=== PATIENT | male | born 1980 | race Caucasian/White ===

== ENCOUNTER 2023-12-13 12:23 | Observation (INO) ==
[2023-12-13] MEDS ORDERED: ONDANSETRON INJ 2 MG/ML 2 ML VIAL IV PRN (14:26)
--- NOTE | 2023-12-13 14:28 | History & Physical Report ---
Date of Service December 13, 2023 Assessment & Plan (1) Acute acalculous cholecystitis: (2) Hypertension: (3) Obesity: Plan 43 year old male transfer from for acute cholecystitis Acute cholecystitis - presented with RUQ pain and vomiting at outside hospital. WBC 10, Cr 1.29, egfr 70, lipase 34, troponin 6, Electrolytes normal, LFT normal * AST 3, ALT 21, ALP 81) - RUQ US with wall thickening of BG with no evidence of cholelithiasis, normal common duct size. Findings may represent early acalculous cholecystitis - CT A/P with diffuse mucosal enhancement of BG with mild diffuse thickening and pericholecystic minimal edema, signifying acute cholecystitis. - Given iv rocephin and toradol at OSH with improvement in symptoms, currently 11/14 - Will get EKG, keep npo, continue ivf, iv toradol prn, iv zofran prn, empiric unasyn, general surgery consult made aware. HTN- he does not know the name of his antihypertensive ?amlod 2.5 per epic. Will continue based on BP readings. Monitor Nicotine abuse- prior smoker, now on gums. Obesity- Weight 230 lb. Was on metformin before which did not help. Has appt with weight management for Thu. DVT ppx- Holding chemoppx for anticipated surgery. Ambulation. SCDs Full code Dispo- Admit to inpatient medsurg. Time spent- approx 80 mins History of Present Illness Chief Complaint: abd pain, vomiting Primary Care Provider: Annmarie Mckenna MD 43 year old male with h/o HTN, prior tobacco abuse, prior substance abuse, obesity who presented as direct admit from [facility] for acute cholecystitis. Spoke to Dr Bazan from prior to transfer. I have seen and examined the patient at bedside and reviewed the transfer documents. He had an episode of RUQ pain 2 weeks back and again had recurrence last night. States after dinner last night, he had abd pain. He then went to bed, woke up at 3 am with severe RUQ pain and had few episodes of vomiting. He presented to where RUQ US and CT A/P showed acute acalculous cholecystitis. He was managed with iv toradol, iv rocephin and his pain improved. He was transferred here for surgical evaluation as they did not have surgical service there. During my encounter, he is lying comfortably in bed. States pain in 11/14. N/V has subsided. No fever or chills. He quit smoking long time back and chews gums. He does not drink alcohol or do drugs. PMH- HTN, Obesity PSH- Not significant FH- Dad with DM, HTN Social history- prior smoker, now chews gums. Prior substance abuse Allergies- NKDA Allergies Allergy/AdvReac Type Severity Reaction Status Date / Time onion Allergy Severe Hives and Unverified 12/13/23 15:17 difficulty breathing Home Medications Medication Instructions Recorded Confirmed Type amlodipine 2.5 mg tablet 2.5 mg PO DAILY 12/13/23 12/13/23 History Past Med/Surg History Medical History No significant past medical history Surgical History No significant past surgical history Social History Smoking Status: Former smoker Preferred Language: Swedish marital status: Current Living Situation: Spouse and Family current occupational status: employed Feels Safe at Home: Yes Review of Systems Review of Systems: All systems reviewed & are unremarkable except as noted in Subjective Physical Exam Physical Exam: General: Lying comfortably in bed, not in acute distress, on room air HEENT: EOMI, ARLYN, MMM Chest: Clear breath sounds bilaterally, no wheezes or crackles CVS: Regular rate and rhythm, normal heart sounds, no murmur Abdomen: Soft, RUQ tenderness+, not distended, normal bowel sounds Neuro: Awake, alert, oriented, conversing well, non focal Extremities: No cyanosis, clubbing or edema Code Status & VTE Plan VTE Prophylaxis Plan VTE Prophylaxis will be ordered: Yes
--- OUTSIDE RECORDS SUMMARY | 2023-12-13 14:50 | External Medical Summary | Summary of Care ---
Author Name Unknown Organization [facility] Address [address] [place] [address] Phone [phone] Care Team Providers Care Pharmacy Technician Per Diem Name Role Phone Yunior Felix DO Primary Care Provider [phone] Reason for Visit * Reason Comments Suture Removal Patient here for sut ure removal on left shoulder. Encounter Details Date Type Department Care Team Description 06/23/2023 Nurse Only MO[facility] Surgery [facility] [address] [place] [address] Malena VELASQUEZ, Nurse [facility] [address] [place] [address] Suture Removal (Patient here for suture re... Allergies Active Allergy Reactions Severity Noted Date Comments Onion 12/03/2021 Hives per patient documented as of this encounter (statuses as of 06/23/2023) Medications Medication Sig Dispensed Refills Start Date End Date Status Tadalafil 5 MG Oral Tablet take 1 tablet by mouth once daily prior to intercourse not more than 1 dose in 24 hours 0 03/09/2023 Active amLODIPine Besylate 2.5 MG Oral Tablet (Norvasc)Indication s:HTN, goal below 130/80 take 1 tablet by mouth every morning 90 Tablet 1 05/26/2023 Active documented as of this encounter (statuses as of 06/23/2023) Active Problems Problem Noted Date History of substance use disorder 2022 HTN, goal below 130/80 06/23/2022 Follow-up exam 12/13/2020 Follow-up exam 12/13/2020 GERD (gastroesophageal reflux disease) 0 11/24/2014 NO KNOWN PROBLEMS 11/17/2014 documented as of this encounter (statuses as of 06/23/2023) Immunizations Name Administration Dates Next Due COVID-19 mRNA, LNP-s, No Pre serve, 2-Dose Series (Moderna) 07/31/2021,01/01/2021,12/04/2020 SEASONAL INFLUENZA, PF, 6 M & Above, IM , (FLULAVAL or FLUZONE) 06/23/2022,07/19/2021,06/27/2020 TDAP (age 10 and older)(Boostrix) 04/28/2019 documented as of this encounter Social History Tobacco Use Types Packs/Day Years Used Date Smoking Tobacco: Former Smokeless Tobacco: Current Chew Alcohol Use Standard Drinks/Week Comments No 0 (1 standard drink = 0.6 oz pur e alcohol) Food Insecurity Answer Date Recorded Within the past 12 months, y ou worried that your food would run out before you got money to buy more. Never true 03/09/2023 Within the past 12 months, t he food you bought just didn't last and you didn't have money to get more. Never true 03/09/2023 Sex Assigned at Date Recorded Male 06/21/2022 5:39 PM E DT Job Start Date Occupation Industry Not on file Not on file Not on file documented as of this encounter Nursing Notes * Emiliana Young LPN - 06/23/2023 3:44 PM EDT Chief Complaint Patient presents with Suture Removal Patient here for suture removal on left shoulder. Patient presents for suture removal in the area of left shoulder. Patient denies any problems or concerns at current time. No signs or symptoms of infection noted at current time. Sutures removed without difficulty. No special skin care instructions at this time. Pt verbalizes understanding. documented in this encounter Plan of Treatment Upcoming Encounters Date Type Specialty Care Team Description 08/11/2023 Office Visit Gastroenterology Yulissa Kelsey PA-C [address] [place] [address] Health Maintenance Due Date Last Done Comments Hepatitis B (1 of 3 - 3-dose series) 1980 Depression Screening 09/17/2021 09/17/2020 COVID-19 Vaccine ( - 2022- season) 2023 07/31/2021, 01/01/2021, 12/04/2020 Influenza Vaccine (FLU shot) (#1) 2023 06/23/2022, 07/19/2021, 06/27/2020 GFR 03/21/2024 03/21/2023, 09/07, 11/24/2014 Albumin/Creatinine Ratio 03/21/2026 03/21/2023 Diabetes Screening 03/21/2026 03/21/2023, 0 03/21/2023, 09/24/2021, Additional history exists Lipid Panel 03/21/2028 03/21/2023, 04/19/2022 DTaP,Tdap,and Td Vaccines (2 - Td or Tdap) 04/28/2029 04/28/2019 GARDASIL-HPV IMMUNIZATION SERIES Aged Out No longer eligible based on patient's age to complete this topic HIV Screening Discontinued Hepatitis C Screening Discontinued MENINGOCOCCAL (MENACTRA/MENVEO) Aged Out No longer eligible based on patient's age to complete this topic Pneumococcal Vaccine: Pediatrics (0 to 5 Years) and At-Risk Patients (6 to 64 Years) Aged Out No longer eligible based on patient's age to complete this topic documented as of this encounter Medical Devices Not on filedocumented as of this encounter Care Teams Pharmacy Technician Per Diem Relationship Specialty Start Date End Date Yunior Felix DO [address] [place] [address] PCP - General Family Medicine 02/03/21 documented as of this encounter
--- OUTSIDE RECORDS SUMMARY | 2023-12-13 14:50 | External Medical Summary | Summary of Care ---
Author Name Unknown Organization [facility] Address [address] [facility] [place] [address] Phone [phone] Care Team Providers Care Spouter Name Role Phone Annmarie Mckenna MD Primary Care Provider Reason for Visit * Reason Comments Weight Management Meds and diet. * Evaluate & Treat - Unlimited Visits (Within 30 days (routine)) - Pending Review Specialty Diagnoses / Procedures Referred By Contact Referred To Contact GI NUTRITION/IM / Gastroenterology Diagnoses Obesity, Class I, BMI 30.0-34.9 (see actual BMI) Annmarie Mckenna MD [address] [place] [address] Referral ID Status Reason Start Date Expiration Date Visits Requested Visits Authorized [id number] Pending Review Specialty Services Required 04/09/[phone] Encounter Details Date Type Department Care Team (Late st Contact Info) Description 08/11/2023 11:00 AM EST Office Visit Nutrition & Weight Management, [facility] [address] [place] [address] Yulissa Kelsey PA-C [address] [place] [phone] Class 1 obesity due to excess calories without serious comorbidity in adult, unspecified BMI*; Abnormal weight gain; Gastroesophageal reflux disease with esophagitis without hemorrhage; HTN, goal below 130/80 Allergies Active Allergy Reactions Criticality Noted Date Comments Onion 12/03/2021 Hives per patient documented as of this encounter (statuses as of 08/11/2023) Medications Medication Sig Dispensed Refills Start Date End Date Status Tadalafil 5 MG Oral Tablet take 1 tablet by mouth once daily prior to intercourse not more than 1 dose in 24 hours 0 03/09/2023 Active amLODIPine Besylate 2.5 MG Oral Tablet (Norvasc)Indication s:HTN, goal below 130/80 take 1 tablet by mouth every morning 90 Tablet 1 05/26/2023 Active metFORMIN HCl 500 MG Oral Tablet (Glucophage) 500mg by mouth daily x 1 week, then 500mg by mouth twice daily 60 Tablet 1 08/11/2023 Active documented as of this encounter (statuses as of 08/11/2023) Active Problems Problem Noted Date Diagnosed Date History of substance use disorder 09/25/2022 HTN, goal below 130/80 06/23/2022 Follow-up exam 12/13/2020 Follow-up exam 12/13/2020 GERD (gastroesophageal reflux disease) 5 NO KNOWN PROBLEMS 11/17/2014 documented as of this encounter (statuses as of 08/11/2023) Immunizations Name Administration Dates Next Due COVID-19 mRNA, LNP-s, No Pre serve, 2-Dose Series (Moderna) 07/31/2021,01/01/2021,12/04/2020 SEASONAL INFLUENZA, PF, 6 M & Above, IM , (FLULAVAL or FLUZONE) 07/24/2023,06/23/2022,07/19/2021, 0 20 TDAP (age 10 and older)(Boostrix) 04/28/2019 documented as of this encounter Social History Tobacco Use Types Packs/Day Years Used Date Smoking Tobacco: Former Smokeless Tobacco: Current Chew Alcohol Use Standard Drinks/Week Comments No 0 (1 standard drink = 0.6 oz pur e alcohol) PHQ-2 Answer Date Recorded PHQ Adult Total Score 1 09/17/2020 Hunger Vital Sign Answer Date Recorded Within the past 12 months, y ou worried that your food would run out before you got the money to buy more. Never true 03/09/20 23 Within the past 12 months, t he food you bought just didn't last and you didn't have money to get more. Never true 03/09/2023 Sex and Gender Information Value Date Recorded Sex Assigned at Male 06/21/2022 5:39 PM EDT Gender Identity Male 06/21/2022 5:39 PM EDT Sexual Orientation Straight 06/21/2022 5: 39 PM EDT Job Start Date Occupation Industry Not on file Not on file Not on file documented as of this encounter Last Filed Vital Signs Vital Sign Reading Time Taken Comments Blood Pressure 136/96 08/11/2023 10:58 AM EST Pulse 88 08/11/2023 10:58 AM EST Temperature - - Respiratory Rate - - Oxygen Saturation - - Inhaled Oxygen Concentration - - Weight 110.3 kg (243 lb 1.6 oz) 023 10:58 AM EST Height 184.2 cm (6' 0.5") 08/11/2023 10 :58 AM EST Body Mass Index 32.52 08/11/2023 10:58 AM EST documented in this encounter Progress Notes * Yulissa Kelsey PA-C - 08/11/2023 11:17 AM EST [facility] CONSULTATION INITIAL CONSULT Referring Physician: Annmarie Mckenna MD Nursing Notes: Bianca Ya, MARCUS 08/11/23 1103 Sign at exiting of workspace Pt verified identity by last name and date. Chief Complaint Patient presents with Weight Management Meds and diet. Waist circumference 43 inches Neck circumference 17 inches Ben Sury Tubbs Jr. is a 42 year old patient who presents to the [facility] for further recommendations. - Initial clinic visit 08/11/2023 Weight 243 lbs Height Body mass index is 32.52 kg/m. Wt Readings from Last 6 Encounters: 08/11/23 110.3 kg (243 lb 1.6 oz) 03/09/23 111.6 kg (246 lb) 09/25/22 111.2 kg (245 lb 3.2 oz) 06/23/22 109.4 kg (241 lb 3.2 oz) 12/13/21 114.8 kg (253 lb) 10/24/21 115 kg (253 lb 8 oz) HPI: Visit 08/11/23 The patient suffers from Class I obesity Patient is interested in the following treatment options for obesity: possible medication use. Previous Weight Management Interventions: The patient has tried weight loss in the past without significant fci success. Previous interventions: Self-directed. Interested in a pill his friend was on but not sure the name Current Diet: Describes typical diet history/24 hr recall Breakfast: coffee Snacks: Lunch: chicken, rice, carrots Snacks: none Dinner: chicken, egg noodles, broccoli Snacks: none Drinks: coffee, water, alexandra jagdish [employer] meals: several times a week Past Medical History Glaucoma No Hypertension: Yes, one medications CAD: No Congestive heart failure No Dyslipidemia: Yes, not on treatment Lipid Panel Results: Results for orders placed or performed in visit on 03/21/23 LIPID PANEL WITH DIRECT LDL IF TG IS HIGH Result Value Ref Range Triglycerides 107 <=174 mg/dL Cholesterol 248 (H) <200 mg/dL HDL Cholesterol 39 (L) >39 mg/dL Non-HDL Cholesterol 209 (H) <=159 mg/dL LDL Cholesterol 188 (H) <=129 mg/dL DVT/PE, clotting disorder: No Stroke: No Seizures: No Sleep Apnea: No Asthma: No COPD: No Patient denies personal or family history of medullary thyroid carcinoma. Patient denies personal or family history of multiple endocrine neoplasia syndrome type II Patient denies personal history of pancreatitis Fatty Liver: no Diabetes: No Hemoglobin A1C last 3 results: Lab Results Component Value Date/Time HEMOGLOBIN A1C - [facility] 5.6 03/21/2023 08:14 AM HEMOGLOBIN A1C - [facility] 5.6 09/24/2021 07:33 AM Insulin Resistance: No PCOS: No GERD: Yes: Requiring medications: No History of nephrolithiasis: No. Osteoarthritis: No Anxiety/Depression: Yes Patient Active Problem List Diagnosis Code NO KNOWN PROBLEMS [id number] GERD (gastroesophageal reflux disease) K21.9 Follow-up exam Z09 Follow-up exam Z09 HTN, goal below 130/80 I10 History of substance use disorder Z87.898 Past Surgical History: Procedure Laterality Date ANORECTAL EXAM ,DIAG, REQUIRING ANESTHESIA N/A 12/13/2021 ANORECTAL EXAM UNDER ANESTHESIA performed by Eileen Nieves MD at [facility] HEMORRHOIDECTOMY, INTERNAL W/ BANDING N/A 12/13/2021 HEMORRHOIDECTOMY LIGATURE SIMPLE BANDING performed by Eileen Nieves MD at [facility] REMOVE TONSILS & ADENOIDS, UNDER 12 T & A, age<12 Review of patient's allergies indicates: Allergen Reactions Onion Hives per patient Current Outpatient Medications Medication Sig Dispense Refill amLODIPine Besylate 2.5 MG Oral Tablet (Norvasc) take 1 tablet by mouth every morning 90 Tablet 1 Tadalafil 5 MG Oral Tablet take 1 tablet by mouth once daily prior to intercourse not more than 1 dose in 24 hours Flulaval Quadrivalent 0.5 ML Suspension Prefilled Syringe (influenza virus vaccine, quadrivalent) Inject into a large muscle. (Patient not taking: Reported on 08/11/2023) 0.5 mL 0 No current facility-administered medications for this visit. Family History Problem Relation Age of Onset Hypertension Father Heart attack Grandfather (Paternal) 50 No Past Hx None Heart attack Uncle (Paternal) Heart disease Aunt (Paternal) 50 CABG Social History: Alcohol: None Tobacco Use: Yes, chews less than 1 can per day Drug Use: No Marital status: Occupation: [employer] Review of Systems: Review of Systems Gastrointestinal: Negative for abdominal pain, diarrhea, nausea and vomiting. Musculoskeletal: Negative for arthralgias. Psychiatric/Behavioral: +anxiety but reports well controlled Physical Examination: BP 136/96 | Pulse 88 | Ht 1.842 m (6' 0.5") | Wt 110.3 kg (243 lb 1.6 oz) | BMI 32.52 kg/m | BSA 2.38 m Physical Exam Vitals and nursing note reviewed. Constitutional: Appearance: Normal appearance. HENT: Head: Normocephalic and atraumatic. Cardiovascular: Normal rate. Pulmonary: Effort: Pulmonary effort is normal. No respiratory distress. Neurological: Mental Status: Alert and oriented to person, place, and time. Psychiatric: Mood and Affect: Mood normal. Assessment and Recommendation: Abnormal weight gain Body mass index is 32.52 kg/m. Class I obesity. Discussed weight management options and would like to proceed with medication weight management. Barriers are consistency. Motivators are feeling better, avoiding/reducing comorbid conditions. Patient goals were discussed in detail at visit. BMR = 2,035 Calories/day Daily calorie needs based on activity level Activity Level Calorie Sedentary: little or no exercise 2,442 Exercise 1-3 times/week 2,798 Exercise 4-5 times/week 2,982 Daily exercise or intense exercise 3-4 times/week 3,155 Intense exercise 6-7 times/week 3,511 Very intense exercise daily, or physical job 3,867 1. Keep a food log. If you bite it, write it! Apps like TalentSky or Tip or Skippal Calorie goal: 9209-1700 calories per day Macronutrients: Protein 10%-35%, Carbohydrates 45%-65%, fat 20%-35% Lower carb: protein 35%, Carbohydrates 40%, fat 25% 2. Drink 48-64 ounces of non-caloric beverages per day. No fruit juices or regular soda Try crystal light, propel, zero calorie flavored water, plain water 3. Goal of 30 minutes of exercise 5 days per week (150 minutes per week--can be divided up however you would like) Aim for aerobic activity and muscle strengthening activities 4. Increase fruit and vegetable servings to 5-6 per day. 1/2 of your plate should be fruits and vegetables 5. Eat 100-200 calories within 1-2 hours of awakening, and every 4 - 6 hours while awake. Do not skip meals!! Eat 3 meals with snacks in between. Choose 100 calorie or less snacks, protein snacks (see handout) 7. Weigh yourself weekly and follow trend over time (day to day weight fluctuations can be discouraging) 8. Decrease starches like bread, pasta, cereal, potatoes and corn. Aim for of your plate Try substitutions like zoodles, lentil pasta, cauliflower mashed potatoes, whole grain foods, quinoa Limit junk/processed foods Chips, pretzels, cookies, cakes, sweets White bread/rolls/wraps/bagels, white rice 9. Increase protein to feel full longer (1/4 of your plate; see myplate handout) Aim for minimum 60 g protein per day/20 g protein per meal Ben was seen today for weight management. Diagnoses and all orders for this visit: PLAN: Goals as above Anti obesity Medication Indications: BMI >30 or BMI >27 with obesity related comorbidity & no apparent contraindications Goal is to lose ~5% wt loss in 3 mo Wegovy/Saxenda/Zepbound: he will check coverage Ozempic, Victoza, Toby, [place]: likely no coverage without type II diabetes diagnosis Wellbutrin: consider Naltrexone: consider Topamax: consider Phentermine: avoid-- HTN Xenical: consider Plenity: consider Metformin: will start Patient would like to try: metformin Class 1 obesity due to excess calories without serious comorbidity in adult, unspecified BMI Goals as above He thinks his friend was taking metformin-- can try metformin Could have been Rybelsus-- however he doesn't have DM2 and rybelsus is likely not covered Plan metFORMIN HCl 500 MG Oral Tablet (Glucophage) Abnormal weight gain Gastroesophageal reflux disease with esophagitis without hemorrhage Not taking medication HTN, goal below 130/80 BP 136/96 | Pulse 88 | Ht 1.842 m (6' 0.5") | Wt 110.3 kg (243 lb 1.6 oz) | BMI 32.52 kg/m | BSA 2.38 m Continue amlodipine Avoid phentermine Anxiety -reports more performance anxiety Phentermine could worsen anxiety Other orders - metFORMIN HCl 500 MG Oral Tablet (Glucophage); 500mg by mouth daily x 1 week, then 500mg by mouthtwice daily I spent a total of 58 minutes on the date of service in preparation, delivery, and documentation ofthe care provided to Ben Tubbs Jr. excluding any time spent in the performance of separately billed services. More than 50% of my time spent with patient providing counseling about the benefits of weight loss, about the patient's nutritional status, detailed explanations about calorie count, types of nutrients to choose, and composition of the meals. Reviewed and discussed weight, weight trends and pertinent labs and test results. Motivational interview provided in order to prepare the patient to achieve future goals. The patient agreed to try all the plan discussed and return in three months. Patient was instructed to message or call in the meantime with any further concerns or questions. Yulissa Kelsey PA-C, [facility] Nutrition and Weight Management [facility]) documented in this encounter Nursing Notes * Bianca Ya LPN - 08/11/2023 11:02 AM EST Pt verified identity by last name and date. Chief Complaint Patient presents with Weight Management Meds and diet. Waist circumference 43 inches Neck circumference 17 inches documented in this encounter Plan of Treatment Upcoming Encounters Date Type Department Care Team (Late st Contact Info) Description 12/31/2023 9:20 AM EDT Office Visit Nutrition & Weight Management, [facility] [address] [place] [address] Yulissa Kelsey PA-C [address] [place] [address] Health Maintenance Due Date Last Done Comments Hepatitis B (1 of 3 - 3-dose series) 1980 Depression Screening 09/17/2021 09/17/2020 COVID-19 Vaccine ( season) 2023 07/31/2021, 01/01/2021, 12/04/2020 GFR 03/21/2024 03/21/2023, 09/07, 11/24/2014 Albumin/Creatinine Ratio 03/21/2026 03/21/2023 Diabetes Screening 03/21/2026 03/21/2023, 0 03/21/2023, 09/24/2021, Additional history exists Lipid Panel 03/21/2028 03/21/2023, 04/19/2022 DTaP,Tdap,and Td Vaccines (2 - Td or Tdap) 04/28/2029 04/28/2019 Influenza Vaccine (FLU shot) Completed 07/24/2023, 06/23/2022, 07/19/2021, Additional history exists GARDASIL-HPV IMMUNIZATION SERIES Aged Out No longer [...] Not on filedocumented as of this encounter Visit Diagnoses Diagnosis Class 1 obesity due to excess calories without serious comorbidity in adult, unspecified BMI- Primary Abnormal weight gain Gastroesophageal reflux disease with esophagitis without hemorrhage HTN, goal below 130/80 Unspecified essential hypertension documented in this encounter Care Teams Spouter Relationship Specialty Start Date End Date Annmarie Mckenna MD [address] [place] [address] PCP - General Internal Medicine 08/04/23 documented as of this encounter
--- OUTSIDE RECORDS SUMMARY | 2023-12-13 14:50 | External Medical Summary | Summary of Care ---
Author Name Unknown Organization [facility] Address [address] [facility] [place] [address] Phone [phone] Care Team Providers Care Interactive Media Specialist Name Role Phone Saul Mckenna MD Primary Care Provider Reason for Visit * Reason Comments eRx-Medication Refill Encounter Details Date Type Department Care Team (Late st Contact Info) Description 12/10/2023 Refill Family Practice [facility] [address] [place] [address] Saul Mckenna MD [address] [place] [address] HTN, goal below 130/80 Allergies Active Allergy Reactions Criticality Noted Date Comments Onion 12/03/2021 Hives per patient documented as of this encounter (statuses as of 12/10/2023) Medications Medication Sig Dispensed Refills Start Date End Date Status Nitro-Bid 2 % Transdermal Ointment (Nitroglycerin) Place topically on the skin every 6 hours. Apply locally at hemorroid twice daily as needed. 1 g 1 09/19/2023 Active metFORMIN HCl 500 MG Oral Tablet (Glucophage) Take 1 Tablet by mouth 2 times a day with morning and evening meals. 60 Tablet 1 10/08/2023 Active amLODIPine Besylate 2.5 MG Oral Tablet (Norvasc)Indicati ons:HTN, goal below 130/80 take 1 tablet by mouth every morning 90 Tablet 3 12/10/2023 Active amLODIPine Besylate 2.5 MG Oral Tablet (Norvasc)Indicati ons:HTN, goal below 130/80 take 1 tablet by mouth every morning 90 Tablet 1 05/26/2023 4 Discontinued documented as of this encounter (statuses as of 12/10/2023) Active Problems Problem Noted Date Diagnosed Date Obesity, Class I, BMI 30.0-34.9 (see actual BMI) 09/03/2023 History of substance use disorder 09/25/2022 HTN, goal below 130/80 06/23/2022 Gastroesophageal reflux disease without esophagi tis 11/24/2014 documented as of this encounter (statuses as of 12/10/2023) Resolved Problems Problem Noted Date Diagnosed Date Resolved Date Follow-up exam 12/13/2020 09/03/2023 Follow-up exam 12/13/2020 09/03/2023 NO KNOWN PROBLEMS 11/17/2014 09/03/2023 documented as of this encounter (statuses as of 12/10/2023) Immunizations Name Administration Dates Next Due COVID-19 mRNA, LNP-s, No Pre serve, 2-Dose Series (Moderna) 07/31/2021,01/01/2021,12/04/2020 COVID-19, MRNA-LNP, 23-24, P F, 30 MCG/0.3 mL, 12 YRS AND ABOVE, IM (PFIZER-Comirnaty) 09/18/2023 Seasonal Influenza, PF, 6 M & above, IM , (FluLaval or Fluzone) 07/24/2023,06/23/2022,07/19/2021, 0 20 TDAP (age 10 and [...] on file documented as of this encounter Miscellaneous Notes * Telephone Encounter - Reg Mclean [facility] - 12/10/2023 9:02 PM EDTSigned Prescriptions: Disp Refills amLODIPine Besylate 2.5 MG Oral Tablet (No*90 Tab*3 Sig: take 1 tablet by mouth every morningAuthorizing Provider: SAUL MCKENNA User: REG MCLEAN documented in this encounter Plan of Treatment Upcoming Encounters Date Type Department Care Team (Late st Contact Info) Description 12/16/2023 10:40 AM EDT Office Visit Nutrition & Weight Management, [facility] [address] [place] [address] Yulissa Kelsey PA-C [address] [facility] [place] [address] Health Maintenance Due Date Last Done Comments Hepatitis B (1 of 3 - 19+ 3-dose series) 1998 Depression Screening 09/17/2021 09/17/2020 GFR 03/21/2024 03/21/2023, 09/07, 11/24/2014 Albumin/Creatinine Ratio 03/21/2026 03/21/2023 Diabetes Screening 03/21/2026 03/21/2023, 0 03/21/2023, 09/24/2021, Additional history exists Lipid Panel 03/21/2028 03/21/2023, 04/19/2022 DTaP,Tdap,and Td Vaccines (2 - Td or Tdap) 04/28/2029 04/28/2019 Influenza Vaccine (FLU shot) Completed 07/24/2023, 06/23/2022, 07/19/2021, Additional history exists COVID-19 Vaccine Completed 09/18/2023, , 01/01/2021, Additional history exists GARDASIL-HPV IMMUNIZATION SERIES Aged [...] as of this encounter Visit Diagnoses Diagnosis HTN, goal below 130/80 Unspecified essential hypertension documented in this encounter Care Teams Interactive Media Specialist Relationship Specialty Start Date End Date Saul Mckenna MD [address] [place] [address] PCP - General Internal Medicine 08/04/23 documented as of this encounter
--- OUTSIDE RECORDS SUMMARY | 2023-12-13 14:50 | External Medical Summary | Summary of Care ---
Author Name Unknown Organization [facility] Address [address] [facility] [place] [address] Phone [phone] Care Team Providers Care Restorative Rehab Aide Name Role Phone Isidro Yunior LOREDO Primary Care Provider [phone] Reason for Visit * Reason Comments Excision Patient here for exc ision on left shoulder. Encounter Details Date Type Department Care Team Description 06/09/2023 Office Visit [facility] [address] [place] [address] Jean-Paul Campos MD [address] [place] [address] Pyogenic granuloma*; Skin tumor Allergies Active Allergy Reactions Severity Noted Date Comments Onion 12/03/2021 Hives per patient documented as of this encounter (statuses as of 06/19/2023) Medications Medication Sig Dispensed Refills Start Date End Date Status Tadalafil 5 MG Oral Tablet take 1 tablet by mouth once daily prior to intercourse not more than 1 dose in 24 hours 0 03/09/2023 Active amLODIPine Besylate 2.5 MG Oral Tablet (Norvasc)Indicati ons:HTN, goal below 130/80 take 1 tablet by mouth every morning 90 Tablet 1 05/26/2023 Active Cephalexin 500 MG Oral Capsule (Keflex) Take 1 Capsule by mouth in the morning and 1 Capsule before bedtime. Do all this for 10 days. 20 Capsule 0 06/09/2023 06/19/2023 Active documented as of this encounter (statuses as of 06/19/2023) Active Problems Problem Noted Date History of substance use disorder 01/19/ 2023 HTN, goal below 130/80 06/23/2022 Follow-up exam 12/13/2020 Follow-up exam 12/13/2020 GERD (gastroesophageal reflux disease) 0 11/24/2014 NO KNOWN PROBLEMS 11/17/2014 documented as of this encounter (statuses as of 06/19/2023) Immunizations Name Administration Dates Next Due COVID-19 [...] on file documented as of this encounter Progress Notes * Jean-Paul Campos MD - 06/09/2023 3:58 PM EDT Patient had a biopsy done 05/22/[address] Valencia-- found to be a DF (see below). Developed a raised lesion 2-3 days after biopsy and it has been bleeding non stop. Clinically appears to have developed a pyogenic granuloma at the site of his biopsy. PROCEDURE NOTE Preoperative diagnosis: Skin, L shoulder, shave: Dermatofibroma, with lipidized features (see comment) Comment: The lesion extends to the deep inked margin of the specimen. Hematoxylin and eosin stainedsections reveal epidermal basilar induction overlying a relatively well demarkated fibrohistiocyticproliferation in the dermis with collagen trapping, dilated vessels, and lipidized multinucleate yevgeniy nt cell macrophages. Postoperative diagnosis: Pending Surgeon(s): Jean-Paul Campos MD Anesthesia: Lidocaine 0.5% with epinephrine 1:200,000 by local infiltration Procedure: excision Estimated blood loss: Less than 5cc Complications: none Description of procedure: Patient escorted to procedure room. Timeout called at 345 PM. Patient name, medical record number, date and procedure verified. Verification of positioning, equipment and availability of supplies. Site identified and marked prior to procedure. Patient and staff present and in agreement. The lesion was identified and an elliptical excision was planned on the left shoulder. . Long axis of the ellipse was oriented parallel to the relaxed skin tension lines in the area. Excision was planned to take at least 0.2 cm of normal appearing skin in all directions. The skin was locally anesthetized and prepped in the usual sterile fashion. Full-thickness excision was performed to the level of the fat. Total width of excision was 1.5 cm. The specimen was submitted in formalin for histologic examination. Meticulous hemostasis was obtained with the electrosurgical device and the defect was closed in a layered fashion with 3-0 vicryl subcutaneous and 3-0 prolene cutaneo us suture. The closure length was 4.0 cm. A sterile pressure dressing was applied. Postoperative care: The patient was instructed to cleanse the wound daily, followed by the application of sterile ointment and a nonadherent dressing. I urged the patient to call us if any problems or questions should arise postoperatively. Started on post-op antibiotics. Brian Campos MD documented in this encounter Nursing Notes * Emiliana Young LPN - 06/09/2023 4:12 PM EDT Chief Complaint Patient presents with Excision Patient here for excision on left shoulder. documented in this encounter Miscellaneous Notes * Result Encounter Note - Jean-Paul Campos MD - 06/19/2023 10:32 AM EDT A. Skin, left shoulder, excision: Reactive changes with residual dermatofibroma and exuberant granulation tissue, completely excised (see comment) Comment: This case was reviewed in intradepartmental consultation. Brian Campos MD * Addendum Note - JOSE ALEJANDRO Elliott - 06/10/2023 7:41 AM EDTAddended by: HECTOR ROSENTHAL on: 06/10/2023 07:41 AM Modules accepted: Orders documented in this encounter Plan of Treatment Upcoming Encounters Date Type Specialty Care Team Description 06/23/2023 Nurse Only Dermatology [place], Nurse Scenery [address] [place] [address] 08/11/2023 Office Visit Gastroenterology Yulissa Kelsey PA-C [address] [place] [address] Health Maintenance Due Date Last Done Comments Hepatitis B (1 of 3 - 3-dose series) 1980 Depression Screening 09/17/2021 09/17/2020 COVID-19 Vaccine ( season) 2023 07/31/2021, 01/01/2021, 12/04/2020 Influenza Vaccine [...] Not on filedocumented as of this encounter Procedures Procedure Name Priority Date/Time Associated Diagnosis Comments DERM IMAGE (SITE) Routine 06/10/2023 Pyogenic granuloma Skin tumor SURGICAL PATHOLOGY Routine 06/09/2023 4: 05 PM EDT Pyogenic granuloma Skin tumor documented in this encounter Results * DERM IMAGE (SITE) (06/10/2023) 06/10/2023 M Nguyen Campos MD DIGITAL PHOTOGRAPHY * SURGICAL PATHOLOGY (06/09/2023 4:05 PM EDT) Final Diagnosis A. Skin, left shoulder, excision: Reactive changes with residual dermatofibroma and exuberant granulation tissue, completely excised (see comment) Comment: This case was reviewed in intradepartmental consultation. 06/15/2023 2:54 PM EDT [facility] Clinical History See Order Comments 06/15/2023 2:54 PM EDT [facility] Order Comments Pyogenic granuloma type growth at the site of a recently biopsied DF (see [id number]); suture weber 12 oclock 06/15/2023 2:54 PM EDT [facility] Gross Description A. Skin. Received in formalin with a container labeled with "Ben Tubbs Jr.", "[id number]", "1980" and " left shoulder". Received is an oriented skin excision measuring 4.2 x 1.9 x 0.9 cm. The skin surface has a chauhan to pink to dark red, slightly raised slightly rough firm, shiny, smooth nodule measuring 1.3 x 1.1 cm, which extends to within 0.2 cm of the closest margin. The underlying tissue is inked in blue and orange. The specimen is serially sectioned into 13 with tips in cassette A1, with 2 sections in cassettes A2 through A6 and 1 section in cassette A7 per the attached diagram. Gross By: 06/15/2023 2:54 PM EDT LABORATORY [facility] Microscopic Description Hematoxylin and eosin stained sections reveal abundant vasculature and a proliferation of spindled and multinucleated cells within a loose fibromyxoid stroma. The cells in this proliferation highlight with CD163, and factor XIIIa. Cells at the periphery of the lesion are positive for CD34. CD34 and ERG highlight vasculature within the granulation tissue and surrounding dermis. Immunostain for SOX10 is negative within the lesion. There are scattered Ki-67 positive cells. 06/15/2023 2:54 PM EDT LABORATORY [facility] Sign Out Location Pathologist sign out performed at [facility] ([facility])[address] [address]. 06/15/2023 2:54 PM EDT LABORATORY [facility] Photographic images and diagrams represent zacarias findings in this case; they are not intended to replace a complete review of the final diagnostic report. The following statement applies to Flow Cytometry, Histology, In situ Hybridization Assays and Molecular Genetics. This test was developed and performed at [facility] and its performance characteristics determined by [facility]. It has not been cleared or approved by the U.S. Food and Drug Administration. The FDA has determined that such clearance or approval is not necessary. This test is used for clinical purposes. It should not be regarded as investigational or for research. Special stains, including histochemical stains, and studies using immunologic and VANDANA methodology (where applicable) are performed with appropriate positive and negative control reactions. 06/15/2023 2:54 PM EDT LABORATORY [facility] Tissue Skin structure / Unknown 06/09/2023 4:05 PM EDT 06/09/2023 4:05 PM EDT Comment:Pyogenic granuloma t ype growth at the site of a recently biopsied DF (see [id number]); suture weber 12 oclock M Nguyen Campos MD LAB PATHOLOGY EDY RODRIGUEZ LABORATORY [facility] [address] [address] [address] documented in this encounter Visit Diagnoses Diagnosis Pyogenic granuloma- Primary Pyogenic granuloma of skin and subcutaneous tissue Skin tumor Neoplasm of uncertain behavior of skin documented in this encounter Care Teams Restorative Rehab Aide Relationship Specialty Start Date End Date Yunior Felix DO [address] [facility] [place] [address] PCP - General Family Medicine 02/03/21 documented as of this encounter
--- OUTSIDE RECORDS SUMMARY | 2023-12-13 14:50 | External Medical Summary | Summary of Care ---
Author Name Unknown Organization [facility] Address [address] [facility] [place] [address] Phone [phone] Care Team Providers Care Furniture Finisher Helper Name Role Phone Annmarie Mckenna MD Primary Care Provider Reason for Referral * Evaluate & Treat - Unlimited Visits (Within 10 days (routine)) - Pending Review Specialty Diagnoses / Procedures Referred By Contac t Referred To Contact General Surgery Diagnoses Hemorrhoids, external without complications Edilma Gonzalez MD [address] [place] [address] Referral ID Status Reason Start Date Expiration Date Visits Requested Visits Authorized [id number] Pending Review Specialty Services Required 09/19/[phone] Question Answer Referral Priority Within 10 days (routine) Where should this appointment be scheduled? [facility] What condition is the patient being seen for? General Surgery Conditions What condition is the patient being seen for? All other conditions Comments Worsening painful thrombosed external hemorroid. Thanks. Reason for Visit * Reason Comments Hemorrhoids Encounter Details Date Type Department Care Team (Late st Contact Info) Description 09/19/2023 9:40 AM EST Office Visit Family Practice [facility] [address] [facility] [place] [address] Edilma Gonzalez MD [address] [place] [address] [id number] Hemorrhoids, external without complications* Allergies Active Allergy Reactions Criticality Noted Date Comments Onion 12/03/2021 Hives per patient documented as of this encounter (statuses as of 09/19/2023) Medications Medication Sig Dispensed Refills Start Date End Date Status amLODIPine Besylate 2.5 MG Oral Tablet (Norvasc)Indicat ions:HTN, goal below 130/80 take 1 tablet by mouth every morning 90 Tablet 1 3 Active metFORMIN HCl 500 MG Oral Tablet (Glucophage) 500mg by mouth daily x 1 week, then 500mg by mouth twice daily 60 Tablet 1 3 Active Nitro-Bid 2 % Transdermal Ointment (Nitroglycerin) Place topically on the skin every 6 hours. Apply locally at hemorroid twice daily as needed. 1 g 1 4 Active Tadalafil 5 MG Oral Tablet take 1 tablet by mouth once daily prior to intercourse not more than 1 dose in 24 hours 0 3 09/19/19 24 Discontinued(Pat ient preference/disco ntinuation) Nitro-Bid 2 % Transdermal Ointment (Nitroglycerin) Place topically on the skin 2 times a day. Apply locally at hemorroid externally twice daily as needed. 30 g 1 4 09/19/19 24 Discontinued documented as of this encounter (statuses as of 09/19/2023) Active Problems Problem Noted Date Diagnosed Date Obesity, Class I, BMI 30.0-34.9 (see actual BMI) 09/03/2023 History of substance use disorder 09/25/2022 HTN, goal below 130/80 06/23/2022 Gastroesophageal reflux disease without esophagi tis 11/24/2014 documented as of this encounter (statuses as of 09/19/2023) Resolved Problems Problem Noted Date Diagnosed Date Resolved Date Follow-up exam 12/13/2020 09/03/2023 Follow-up exam 12/13/2020 09/03/2023 NO KNOWN PROBLEMS 11/17/2014 09/03/2023 documented as of this encounter (statuses as of 09/19/2023) Immunizations Name Administration Dates Next Due COVID-19 [...] Sign Reading Time Taken Comments Blood Pressure 136/80 09/19/2023 9:42 AM EST Pulse 88 09/19/2023 9:42 AM EST Temperature 37.3 C (99.1 F) 09/19/2023 9:42 AM ES T Respiratory Rate 16 09/19/2023 9:42 AM EST Oxygen Saturation 97% 09/19/2023 9:42 AM EST Inhaled Oxygen Concentration - - Weight 107.5 kg (236 lb 14.4 oz) 09/19/2023 9:42 AM EST Height 184.2 cm (6' 0.5") 09/19/2023 9:42 AM EST Body Mass Index 31.69 09/19/2023 9:42 AM EST documented in this encounter Progress Notes * Edilma Gonzalez MD - 09/19/2023 9:45 AM EST Images from the original note were not included. History of Present Illness Ben Ga Suly JrPhani is a 42 year old male that presents for Hemorrhoids Worsening hemorroids with pain radiating to testicle. Constipation+ Tried OTC cream with no relief. Have no constipation. Had band ligation done in past. Physical Exam Vitals: 09/19/23 0942 Temp: 37.3 C (99.1 F) Pulse: 88 Resp: 16 SpO2: 97% BP: 136/80 BMI: 31.67 BP Readings from Last 3 Encounters: 09/19/23 136/80 08/11/23 136/96 03/09/23 138/89 Wt Readings from Last 3 Encounters: 09/19/23 107.5 kg (236 lb 14.4 oz) 08/11/23 110.3 kg (243 lb 1.6 oz) 03/09/23 111.6 kg (246 lb) BMI Readings from Last 3 Encounters: 09/19/23 31.69 kg/m 08/11/23 32.52 kg/m 03/09/23 31.57 kg/m Ht Readings from Last 3 Encounters: 09/19/23 1.842 m (6' 0.5") 08/11/23 1.842 m (6' 0.5") 12/13/21 1.88 m (6' 2.02") I have reviewed the following results: None Thrombosed external hemorroids with small open area. Assessment and Plan Hemorrhoids, external without complications (Primary) - SURGERY REFERRAL OP Other orders - Nitro-Bid 2 % Transdermal Ointment (Nitroglycerin); Place topically on the skin every 6 hours. Apply locally at hemorroid twice daily as needed. Use wipe or clean with water. Watch for low bp with use of cream NTG. Use stool softner as needed and continue hydration. Wrap-Up Time: I spent a total of 20-29 minutes (exact time 25 mins) on the date of service in preparation, delivery, and documentation of the care provided to Ben Tubbs JrPhani excluding any time spent in the performance of separately billed services. documented in this encounter Nursing Notes * Padma Sharp LPN - 09/19/2023 9:40 AM EST Patient presents today for a hemorrhoid that is causing him a lot of pain. He has been using an OTCcream and he said that it seems like he was chaffing. He said that the pain is going into his testicles. He said that he noticed it about 2 weeks ago. documented in this encounter Plan of Treatment Upcoming Encounters Date Type Department Care Team (Late st Contact Info) Description 12/31/2023 9:20 AM EDT Office Visit Nutrition & Weight Management, [facility] [address] [place] [address] Yulissa Kelsey PA-C [address] [place] [address] Scheduled Referrals Name Type Priority Associated Diagnoses Orde r Schedule SURGERY REFERRAL OP Referral Within 10 days (routine) Hemorrhoids, external without complications Ordered: 09/19/2023 Health Maintenance Due Date Last Done Comments Hepatitis B (1 of 3 - 3-dose series) 1980 Depression Screening 09/17/2021 09/17/2020 GFR 03/21/2024 03/21/2023, [...] as of this encounter Visit Diagnoses Diagnosis Hemorrhoids, external without complications- Primary External hemorrhoids without mention of complication documented in this encounter Care Teams Furniture Finisher Helper Relationship Specialty Start Date End Date Annmarie Mckenna MD [address] [place] [address] PCP - General Internal Medicine 08/04/23 documented as of this encounter
--- OUTSIDE RECORDS SUMMARY | 2023-12-13 14:50 | External Medical Summary | Summary of Care ---
Author Name Unknown Organization [facility] Address [address] [place] [address] Phone [phone] Care Team Providers Care Die Repair Machinist Name Role Phone Annmarie Mckenna MD Primary Care Provider Reason for Visit * Reason Comments eRx-Medication Refill Encounter Details Date Type Department Care Team (Late st Contact Info) Description 10/08/2023 Refill Nutrition & Weight Management, [facility] [address] [place] [id number] Yulissa Prakash PA-C [address] [place] [phone] Allergies Active Allergy Reactions Criticality Noted Date Comments Onion 12/03/2021 Hives per patient documented as of this encounter (statuses as of 10/08/2023) Medications Medication Sig Dispensed Refills Start Date End Date Status amLODIPine Besylate 2.5 MG Oral Tablet (Norvasc)Indicati ons:HTN, goal below 130/80 take 1 tablet by mouth every morning 90 Tablet 1 05/26/2023 Active Nitro-Bid 2 % Transdermal Ointment (Nitroglycerin) Place topically on the skin every 6 hours. Apply locally at hemorroid twice daily as needed. 1 g 1 09/19/2023 Active metFORMIN HCl 500 MG Oral Tablet (Glucophage) Take 1 Tablet by mouth 2 times a day with morning and evening meals. 60 Tablet 1 10/08/2023 Active metFORMIN HCl 500 MG Oral Tablet (Glucophage) 500mg by mouth daily x 1 week, then 500mg by mouth twice daily 60 Tablet 1 08/11/2023 4 Discontinued documented as of this encounter (statuses as of 10/08/2023) Active Problems Problem Noted Date Diagnosed Date Obesity, Class I, BMI 30.0-34.9 (see actual BMI) 09/03/2023 History of substance use disorder 09/25/2022 HTN, goal below 130/80 06/23/2022 Gastroesophageal reflux disease without esophagi tis 11/24/2014 documented as of this encounter (statuses as of 10/08/2023) Resolved Problems Problem Noted Date Diagnosed Date Resolved Date Follow-up exam 12/13/2020 09/03/2023 Follow-up exam 12/13/2020 09/03/2023 NO KNOWN PROBLEMS 11/17/2014 09/03/2023 documented as of this encounter (statuses as of 10/08/2023) Immunizations Name Administration Dates Next Due COVID-19 [...] encounter Miscellaneous Notes * Telephone Encounter - Yulissa Prakash PA-C - 10/08/2023 4:11 PM EST Signed Prescriptions: Disp Refills metFORMIN HCl 500 MG Oral Tablet (Glucopha*60 Tab*1 Sig: Take 1 Tablet by mouth 2 times a day with morning and evening meals. Authorizing Provider: YULISSA PRAKASH * Telephone Encounter - Dee Boateng RN - 10/08/2023 1:52 PM ESTPending Prescriptions: Disp Refills metFORMIN HCl 500 MG Oral Tablet [Pharmacy*60 Tab*1 Sig: take 1 tablet by mouth once daily for 1 week then 1 tablet by mouth twice a day * Telephone Encounter - Dee Boateng RN - 10/08/2023 1:50 PM EST Pharmacy: [id number] [address] [place] [address] Pending Prescriptions: Disp Refills metFORMIN HCl 500 MG Oral Tablet (Glucoph*60 Tab*1 Sig: take 1 tablet by mouth once daily for 1 week then 1 tablet by mouth twice a day Last Visit: 08/11/2023 (in office), Visit date not found (telemedicine) Next Visit: 12/31/2023 If no future appointments scheduled, and last appointment is greater than a year ago, please schedule patient for a follow-up appointment Last date the medication was ordered: 08/11/23 Urine Drug Screen:No results found for this or any previous visit. Patient Phone Numbers Labs: Lab Results Component Value Date/Time CREAT 0.9 03/21/2023 08:14 AM CREAT 0.9 11/24/2014 09:33 AM POTASSIUM 4.3 03/21/2023 08:14 AM POTASSIUM 4.6 11/24/2014 09:33 AM TSH 1.84 03/21/2023 08:14 AM TSH 1.60 11/24/2014 09:33 AM LDLCALC 188 (H) 03/21/2023 08:14 AM ALT 26 03/21/2023 08:14 AM ALT 30 11/24/2014 09:33 AM HGBA1C 5.6 03/21/2023 08:14 AM documented in this encounter Plan of Treatment Upcoming Encounters Date Type Department Care Team (Late st Contact Info) Description 12/31/2023 9:20 AM EDT Office Visit Nutrition & Weight Management, [facility] [address] [place] [phone] Yulissa Prakash PA-C [address] [place] [phone] Health Maintenance Due Date Last Done Comments [...] filedocumented as of this encounter Care Teams Die Repair Machinist Relationship Specialty Start Date End Date Annmarie Mckenna MD [address] [place] [phone] PCP - General Internal Medicine 08/04/23 documented as of this encounter
[2023-12-13] MEDS: LACTATED RINGER'S 1,000 ML IV SCH (15:07)
[2023-12-13] MEDS ORDERED: Patient's HEIGHT &/or WEIGHT Needed SCH (15:15)
[2023-12-13 15:54] LABS: Hematocrit (blood only) 44.7 % (42.0-52.0); Hemoglobin 15.1 g/dl (14.0-18.0); Mean Corpuscular Hgb Conc 33.8 g/dL (32.0-36.0); Mean Corpuscular Volume 85.8 fL (80.0-100.0); Mean Platelet Volume 10.4 fL (9.4-12.4); Platelet Count 238 K/uL (130-400); RDW Coefficient of Variation 12.6 % (11.5-14.5); RDW Standard Deviation 39.1 fL (36.4-46.3); Red Blood Count 5.21 M/uL (4.70-6.10); White Blood Count 9.59 K/ul (4.8-10.8)
[2023-12-13] MEDS: KETOROLAC TROMETHAMINE 15 MG/ML VIAL IV PRN (15:57)
[2023-12-13 16:06] LABS: Albumin Globulin Ratio 1.9 (0.9-2); Albumin Level 4.4 gm/dl (3.4-5.0); BUN Creatinine Ratio 21.4 (10-20); Bilirubin,Total 0.9 mg/dl (0.2-1.0); Calcium 8.9 mg/dl (8.6-10.3); Creatinine Clr Calc Pharmacy 123.6 ml/min; Est GFR (African American) 108.2 ml/min; Est GFR (Non-African American) 93.4 ml/min; Globulin 2.3 gm/dl (2.5-4.0); Potassium 3.9 mmol/L (3.5-5.1); Total Protein 6.7 gm/dl (6.0-8.3)
[2023-12-13] MEDS: amLODIPine BESYLATE 5 MG TAB PO SCH (16:39)
[2023-12-13] MEDS: AMPICILLIN/SULBACTAM SOD 3,000 MG in SODIUM CHLOR 0.9% MINI-B 100 ML IV ONE (16:44)
--- NOTE | 2023-12-13 17:22 | Surgery Consultation ---
Date of Consultation December 13, 2023 Assessment & Plan (1) Abdominal pain: Right upper quadrant with outside imaging showing mild wall thickening of gallbladder, no stones. I would recommend a HIDA scan to better evaluate if his gallbladder is the source of his symptoms. OK to have full liquids today but npo after midnight pending HIDA scan results. History of Present Illness Reason for Consultation: abdominal pain Requesting Physician: Ej Dsouza MD Attending Physician: Ej Dsouza MD History of Present Illness 43 yr old man transferred from [place] with ? acute acalculous cholecystitis. About two weeks ago, had some crampy upper abdominal pain on right side; thought it could be appendicitis but it resolved. Yesterday, while watching TV, started to have crampy pain in the RUQ radiating to lower back, thought he needed to have a bowel movement. Went to bed and woke up at 3 am with intense vomiting. Pain subsided after vomiting but recurred when he laid down. Moderate to severe intensity, pain medications relieve symptoms, no fevers/ chills, no exacerbating factors. No family history of gallbladder disease. No sick contacts. Also notes neck/ shoulder pain. Last meal was Sat evening. Hungry now and requesting food. Allergies Allergy/AdvReac Type Severity Reaction Status Date / Time onion Allergy Severe Hives and Unverified 12/13/23 15:17 difficulty breathing Home Medications Medication Instructions Recorded Confirmed Type amlodipine 2.5 mg tablet 2.5 mg PO DAILY 12/13/23 12/13/23 History Patient History Medical History No significant past medical history Surgical History No significant past surgical history Social History Smoking Status: Former smoker Do You Dip or Chew Tobacco: Yes; Hx Alcohol Use: No Hx Substance Use: Yes Last Used Substance: Just Prior to Arrival Preferred Language: Thai Communication Ability: Effective Medicare Nurse Required: No Beliefs That Will Affect Care: None marital status: Current Living Situation: Family current occupational status: employed Other Information That Helps Us Care for You: No Feels Safe at Home: Yes Safety Concerns: Feels Safe At This Time Review of Systems Review of Systems: All systems reviewed & are unremarkable except as noted in HPI & below Physical Exam Constitutional: WD/WN, vitals as above Eyes: PERRL, conjunctivae normal, anicteric sclerae Respiratory: normal respiratory effort, lungs clear to auscultation Cardiovascular: RRR, no murmur, no edema Gastrointestinal (Abdomen): Inspection/Auscultation: abdomen normal to inspection and normal bowel sounds; abdomen not distended Percussion/Palpation: + abdomen tender (mild in right upper quadrant and epigastric) and abdomen soft; no guarding Musculoskeletal: Extremities: extremities normal to inspection Neurologic: awake; no focal motor deficits Psychiatric: A+Ox3, euthymic affect Results & Data Vital Signs (Past 12 Hours) Vital Signs Temp Pulse Resp BP Pulse Ox O2 Del Method 12/13/23 14:00 36.4 C 70 16 159/107 H 98 Room Air Laboratory Results 12/13/23 Range/Units 15:20 WBC 9.59 (4.8-10.8) K/ul RBC 5.21 (4.70-6.10) M/uL Hgb 15.1 (14.0-18.0) g/dl Hct 44.7 (42.0-52.0) % MCV 85.8 (80.0-100.0) fL MCH 29.0 (25.0-34.0) pg MCHC 33.8 (32.0-36.0) g/dL RDW Std Deviation 39.1 (36.4-46.3) fL RDW Coeff of Janak 12.6 (11.5-14.5) % Plt Count 238 (130-400) K/uL MPV 10.4 (9.4-12.4) fL Sodium 141 (136-145) mmol/L Potassium 3.9 (3.5-5.1) mmol/L Chloride 107 (98-107) mmol/L Carbon Dioxide 29 (21-32) mmol/L Anion Gap 5 (3-11) BUN 21 (6-23) mg/dl Creatinine 0.98 (0.6-1.4) mg/dl Est Cr Clr Drug Dosing 123.6 ml/min Est GFR ( Amer) 108.2 ml/min Est GFR (Non-Af Amer) 93.4 ml/min BUN/Creatinine Ratio 21.4 H (10-20) Glucose 86 (70-99(Fasting)) mg/dl Calcium 8.9 (8.6-10.3) mg/dl Total Bilirubin 0.9 (0.2-1.0) mg/dl AST 12 L (13-39) U/L ALT 12 (7-52) U/L Alkaline Phosphatase 59 (34-104) U/L Total Protein 6.7 (6.0-8.3) gm/dl Albumin 4.4 (3.4-5.0) gm/dl Globulin 2.3 L (2.5-4.0) gm/dl Albumin/Globulin Ratio 1.9 (0.9-2) Diagnostic Findings CT scan from [place] shows diffuse mucosal enhancement of gallbladder with mild diffuse thickening of wall (5.5 mm). No gallstones. RUQ US from [place] shows wall thickening of the gallbladder of 8-9 mm. no cholelithiasis or pericholecystic fluid. cbd normal at 3 mm.
[2023-12-13] MEDS: hydrALAZINE HCL 20 MG/ML VIAL IV PRN (20:41)
[2023-12-13] MEDS ORDERED: AMPICILLIN SOD/SULBACTAM SOD 3 GM VIAL IV SCH (22:00)
[2023-12-13] MEDS: AMPICILLIN/SULBACTAM SOD 3,000 MG in SODIUM CHLOR 0.9% MINI-B 100 ML IV SCH (22:05)
--- NOTE | 2023-12-14 06:15 | Electrocardiogram Report ---
Test Reason : Blood Pressure : / mmHG Vent. Rate : 054 BPM Atrial Rate : 054 BPM P-R Int : 138 ms QRS Dur : 096 ms QT Int : 448 ms P-R-T Axes : 024 014 -07 degrees QTc Int : 424 ms Sinus bradycardia Otherwise normal ECG When compared with ECG of 11-NOV-2007 20:39, Vent. rate has decreased BY 38 BPM Nonspecific T wave abnormality has improved Confirmed by Regan Chavez ([id number]) on 12/14/2023 6:14:55 AM Referred By: Ej Dsouza Confirmed By:Regan Chavez
[2023-12-14 06:51] LABS: Hematocrit (blood only) 42.5 % (42.0-52.0); Hemoglobin 14.1 g/dl (14.0-18.0); Mean Corpuscular Hemoglobin 28.8 pg (25.0-34.0); Mean Corpuscular Hgb Conc 33.2 g/dL (32.0-36.0); Mean Corpuscular Volume 86.9 fL (80.0-100.0); Mean Platelet Volume 10.4 fL (9.4-12.4); Platelet Count 209 K/uL (130-400); RDW Coefficient of Variation 12.7 % (11.5-14.5); RDW Standard Deviation 40.2 fL (36.4-46.3); Red Blood Count 4.89 M/uL (4.70-6.10); White Blood Count 9.09 K/ul (4.8-10.8)
[2023-12-14 07:17] LABS: Albumin Globulin Ratio 1.9 (0.9-2); Albumin Level 3.7 gm/dl (3.4-5.0); BUN Creatinine Ratio 21.8 (10-20); Calcium 8.5 mg/dl (8.6-10.3); Creatinine Clr Calc Pharmacy 119.9 ml/min; Est GFR (African American) 104.4 ml/min; Magnesium 2.2 mg/dl (1.7-2.4); Total Protein 5.7 gm/dl (6.0-8.3)
[2023-12-14 07:20] LABS: Partial Thromboplastin Time 28 Seconds (21-31); Prothrombin Time 11.2 Seconds (9.0-12.0)
[2023-12-14] MEDS ORDERED: amLODIPine BESYLATE 5 MG TAB PO SCH (09:00)
[2023-12-14] MEDS: amLODIPine BESYLATE 5 MG TAB PO SCH (09:33)
--- NOTE | 2023-12-14 12:53 | Nuclear Medicine Report ---
NM hepatobiliary CLINICAL HISTORY: abdominal pain and GB wall thickening on CT TECHNIQUE: Following the intravenous injection of 5.4 mCi of Tc-99m labeled Technetium 99m mebrofeni n, multiple images of the upper abdomen were obtained in the anterior projection with uptake measurem ents of the gallbladder obtained. Comparison: Comparison is made to right upper quadrant ultrasound 12/13/2023 FINDINGS: Sequential images demonstrate normal uptake in the liver, common bile duct, gallbladder, an d small bowel. No defects in uptake are identified. Subsequent imaging after the administration of si ncalide demonstrates prompt elimination of the radiotracer from the gallbladder. IMPRESSION: Normal uptake of contrast by the gallbladder. No evidence of acute cholecystitis. Reference: Normal gallbladder ejection fraction is greater than 33%. ACT 112: Negative or not required by law. Electronically signed by: Júnior Farias M.D. 12/14/2023 12:51 PM
--- NOTE | 2023-12-14 13:26 | Hospitalist Progress Note ---
Date of Service December 14, 2023 Assessment & Plan (1) Acute acalculous cholecystitis: (2) Hypertension: (3) Obesity: Plan 43 year old male transfer from for acute cholecystitis Abdominal pain DD: Gastritis, peptic ulcer disease, Suspected Acute cholecystitis--less likely -- Outpatient records:lipase 34, troponin 6, Electrolytes normal, LFT normal RUQ US with wall thickening of BG with no evidence of cholelithiasis, normal common duct size. Findings may represent early acalculous cholecystitis CT A/P with diffuse mucosal enhancement of BG with mild diffuse thickening and pericholecystic minimal edema, signifying acute cholecystitis. --HIDA:Normal uptake of contrast by the gallbladder. No evidence of acute cholecystitis. -- Empirically received Unasyn --Appreciate surgery input: Discussed with surgery on 12/14/2023. Do not recommend antibiotics. Recommends to start on Protonix and follow-up with GI as outpatient Started on Protonix 40 mg daily Advance to low-fat diet as tolerated Plan to discharge home today Patient was advised to follow-up with PCP, gastroenterology as outpatient HTN Continue home medications Monitor Nicotine abuse prior smoker, now on gums. Obesity BMI 31 Was on Metformin before which did not help Has appt with weight management for Wed. DVT Px: SCDs Code Status Full code Disposition Home Admission and Anticipated Discharge Date Admission Date: December 13, 2023 Subjective Patient is seen and examined at bedside Abdominal pain almost resolved Discussed with surgery today Patient denies any nausea, vomiting, chest pain, dyspnea No other complaints Eager to get discharged Review of Systems Review of Systems: All systems reviewed & are unremarkable except as noted in Subjective Physical Exam Physical Exam: Physical Exam: Vitals signs as noted above General Appearance:Obese, no apparent distress Head: normocephalic, Atraumatic Eyes: normal inspection, EOMI Neck: supple, Trachea midline Respiratory/Chest: Normal breath sounds, CTA, No accessory muscle use Cardiovascular: S1, S2, No murmur Abdomen/GI:Soft, mild RUQ tender, Bowel sounds present Extremities/Musculoskeletal:normal inspection, no edema Neurologic/Psych:AAOX3, grossly no focal neurological deficits Skin: normal color, warm Results & Data Results & Data Vital Signs (Past 12 Hours) Vital Signs Temp Pulse Resp BP Pulse Ox O2 Del Method 12/14/23 07:20 36.4 C L 67 18 127/72 97 Room Air Laboratory Results Short CBC 04/07/24 04/08/24 Range/Units 15:20 06:33 WBC 9.59 9.09 (4.8-10.8) K/ul Hgb 15.1 14.1 (14.0-18.0) g/dl Hct 44.7 42.5 (42.0-52.0) % Plt Count 238 209 (130-400) K/uL BMP 12/13/23 12/14/23 15:20 06:33 Sodium 141 142 Potassium 3.9 4.0 Chloride 107 110 H Carbon Dioxide 29 28 BUN 21 22 Creatinine 0.98 1.01 Glucose 86 98 Calcium 8.9 8.5 L Liver Function 12/13/23 12/14/23 Range/Units 15:20 06:33 Total Bilirubin 0.9 1.0 (0.2-1.0) mg/dl AST 12 L 11 L (13-39) U/L ALT 12 13 (7-52) U/L Alkaline Phosphatase 59 52 (34-104) U/L Albumin 4.4 3.7 (3.4-5.0) gm/dl
--- NOTE | 2023-12-14 13:38 | Surgery Progress Note ---
Date of Service December 14, 2023 Assessment & Plan (1) Abdominal pain: Plan: Right upper quadrant with outside imaging showing mild wall thickening of gallbladder, no stones. HIDA negative for acute cholecystitis No leukocytosis tolerated advanced diet last night without any abdominal pain Plan: No surgical intervention recommended as HIDA negative. Needs outpatient GI referral/follow-up Consider daily PPI given history of PUD per patient Dietary modifications Discussed with hospitalist team Dr. Borden has seen and examined patient , agrees with above. Admission and Anticipated Discharge Date Admission Date: December 13, 2023 Supervising Physician Co-Signing Physician Notes I have seen and examined the patient personally and agree with the above assessment plan. In brief, the HIDA scan was negative for acute cholecystitis. He tolerated advance diet. No surgical intervention required at this time. He will need outpatient GI referral follow-up. Please call with any questions or concerns. Subjective felt fine last evening with advancement of diet no abdominal pain today history of rectal bleeding with hemorrhoids and history of stomach ulcers. Believes symptoms might be secondary to restaurant food in [place] (as had similar symptoms in past after eating at same restaurant). Pain with spicy foods. Physical Exam Constitutional: WD/WN, vitals as above cooperative and comfortable; no acute distress and not ill appearing Skin: no rashes, warm and dry no jaundice Psychiatric: A+Ox3, euthymic affect Results & Data Vital Signs (Past 12 Hours) Vital Signs Temp Pulse Resp BP Pulse Ox O2 Del Method 12/14/23 07:20 36.4 C L 67 18 127/72 97 Room Air Laboratory Results 12/14/23 12/13/23 Range/Units 06:33 15:20 WBC 9.09 9.59 (4.8-10.8) K/ul RBC 4.89 5.21 (4.70-6.10) M/uL Hgb 14.1 15.1 (14.0-18.0) g/dl Hct 42.5 44.7 (42.0-52.0) % MCV 86.9 85.8 (80.0-100.0) fL MCH 28.8 29.0 (25.0-34.0) pg MCHC 33.2 33.8 (32.0-36.0) g/dL RDW Std Deviation 40.2 39.1 (36.4-46.3) fL RDW Coeff of Janak 12.7 12.6 (11.5-14.5) % Plt Count 209 238 (130-400) K/uL MPV 10.4 10.4 (9.4-12.4) fL PT 11.2 (9.0-12.0) Seconds INR 1.0 (0.9-1.1) APTT 28 (21-31) Seconds PTT Ratio 1.0 Sodium 142 141 (136-145) mmol/L Potassium 4.0 3.9 (3.5-5.1) mmol/L Chloride 110 H 107 (98-107) mmol/L Carbon Dioxide 28 29 (21-32) mmol/L Anion Gap 4 5 (3-11) BUN 22 21 (6-23) mg/dl Creatinine 1.01 0.98 (0.6-1.4) mg/dl Est Cr Clr Drug Dosing 119.9 123.6 ml/min Est GFR ( Amer) 104.4 108.2 ml/min Est GFR (Non-Af Amer) 90.0 93.4 ml/min BUN/Creatinine Ratio 21.8 H 21.4 H (10-20) Glucose 98 86 (70-99(Fasting)) mg/dl Calcium 8.5 L 8.9 (8.6-10.3) mg/dl Magnesium 2.2 (1.7-2.4) mg/dl Total Bilirubin 1.0 0.9 (0.2-1.0) mg/dl AST 11 L 12 L (13-39) U/L ALT 13 12 (7-52) U/L Alkaline Phosphatase 52 59 (34-104) U/L Total Protein 5.7 L 6.7 (6.0-8.3) gm/dl Albumin 3.7 4.4 (3.4-5.0) gm/dl Globulin 2.0 L 2.3 L (2.5-4.0) gm/dl Albumin/Globulin Ratio 1.9 1.9 (0.9-2) Diagnostic Findings NM hepatobiliary CLINICAL HISTORY: abdominal pain and GB wall thickening on CT TECHNIQUE: Following the intravenous injection of 5.4 mCi of Tc-99m labeled Technetium 99m mebrofenin, multiple images of the upper abdomen were obtained in the anterior projection with uptake measurements of the gallbladder obtained. Comparison: Comparison is made to right upper quadrant ultrasound 12/13/2023 FINDINGS: Sequential images demonstrate normal uptake in the liver, common bile duct, gallbladder, and small bowel. No defects in uptake are identified. Subsequent imaging after the administration of sincalide demonstrates prompt elimination of the radiotracer from the gallbladder. IMPRESSION: Normal uptake of contrast by the gallbladder. No evidence of acute cholecystitis. Reference: Normal gallbladder ejection fraction is greater than 33%.
--- NOTE | 2023-12-14 13:41 | Discharge Summary ---
Date of Service December 14, 2023 Admission HPI Per Admitting Provider 43 year old male with h/o HTN, prior tobacco abuse, prior substance abuse, obesity who presented as direct admit from [facility] for acute cholecystitis. Spoke to Dr Bazan from prior to transfer. I have seen and examined the patient at bedside and reviewed the transfer documents. He had an episode of RUQ pain 2 weeks back and again had recurrence last night. States after dinner last night, he had abd pain. He then went to bed, woke up at 3 am with severe RUQ pain and had few episodes of vomiting. He presented to where RUQ US and CT A/P showed acute acalculous cholecystitis. He was managed with iv toradol, iv rocephin and his pain improved. He was transferred here for surgical evaluation as they did not have surgical service there. During my encounter, he is lying comfortably in bed. States pain in 11/14. N/V has subsided. No fever or chills. He quit smoking long time back and chews gums. He does not drink alcohol or do drugs. PMH- HTN, Obesity PSH- Not significant FH- Dad with DM, HTN Social history- prior smoker, now chews gums. Prior substance abuse Allergies- NKDA Admission Exam Per Admitting Provider General: Lying comfortably in bed, not in acute distress, on room air HEENT: EOMI, ARLYN, MMM Chest: Clear breath sounds bilaterally, no wheezes or crackles CVS: Regular rate and rhythm, normal heart sounds, no murmur Abdomen: Soft, RUQ tenderness+, not distended, normal bowel sounds Neuro: Awake, alert, oriented, conversing well, non focal Extremities: No cyanosis, clubbing or edema Principal Diagnosis Abdominal pain DD: Gastritis, peptic ulcer disease Discharge Data Allergies Allergy/AdvReac Type Severity Reaction Status Date / Time onion Allergy Severe Hives and Unverified 12/13/23 15:17 difficulty breathing Consultations 12/13/23 14:26 Consult General Surgery Routine Procedures Performed Laboratory Results WBC 9.09 K/ul (4.8-10.8) 12/14/23 06:33 RBC 4.89 M/uL (4.70-6.10) 12/14/23 06:33 Hgb 14.1 g/dl (14.0-18.0) 12/14/23 06:33 Hct 42.5 % (42.0-52.0) 12/14/23 06:33 MCV 86.9 fL (80.0-100.0) 12/14/23 06:33 MCH 28.8 pg (25.0-34.0) 12/14/23 06:33 MCHC 33.2 g/dL (32.0-36.0) 12/14/23 06:33 RDW Std Deviation 40.2 fL (36.4-46.3) 12/14/23 06:33 RDW Coeff of Janak 12.7 % (11.5-14.5) 12/14/23 06:33 Plt Count 209 K/uL (130-400) 12/14/23 06:33 MPV 10.4 fL (9.4-12.4) 12/14/23 06:33 PT 11.2 Seconds (9.0-12.0) 12/14/23 06:33 INR 1.0 (0.9-1.1) 12/14/23 06:33 APTT 28 Seconds (21-31) 12/14/23 06:33 PTT Ratio 1.0 12/14/23 06:33 Sodium 142 mmol/L (136-145) 12/14/23 06:33 Potassium 4.0 mmol/L (3.5-5.1) 12/14/23 06:33 Chloride 110 mmol/L (98-107) H 12/14/23 06:33 Carbon Dioxide 28 mmol/L (21-32) 12/14/23 06:33 Anion Gap 4 (3-11) 12/14/23 06:33 BUN 22 mg/dl (6-23) 12/14/23 06:33 Creatinine 1.01 mg/dl (0.6-1.4) 12/14/23 06:33 Est Cr Clr Drug Dosing 119.9 ml/min 12/14/23 06:33 Est GFR ( Amer) 104.4 ml/min 12/14/23 06:33 Est GFR (Non-Af Amer) 90.0 ml/min 12/14/23 06:33 BUN/Creatinine Ratio 21.8 (10-20) H 12/14/23 06:33 Glucose 98 mg/dl (70-99(Fasting)) 12/14/23 06:33 Calcium 8.5 mg/dl (8.6-10.3) L 12/14/23 06:33 Magnesium 2.2 mg/dl (1.7-2.4) 12/14/23 06:33 Total Bilirubin 1.0 mg/dl (0.2-1.0) 12/14/23 06:33 AST 11 U/L (13-39) L 12/14/23 06:33 ALT 13 U/L (7-52) 12/14/23 06:33 Alkaline Phosphatase 52 U/L (34-104) 12/14/23 06:33 Total Protein 5.7 gm/dl (6.0-8.3) L 12/14/23 06:33 Albumin 3.7 gm/dl (3.4-5.0) 12/14/23 06:33 Globulin 2.0 gm/dl (2.5-4.0) L 12/14/23 06:33 Albumin/Globulin Ratio 1.9 (0.9-2) 12/14/23 06:33 Impressions Hepatobiliary Scan Nuclear Medicine 12/14/23 17:13 NM hepatobiliary CLINICAL HISTORY: abdominal pain and GB wall thickening on CT TECHNIQUE: Following the intravenous injection of 5.4 mCi of Tc-99m labeled Technetium 99m mebrofenin, multiple images of the upper abdomen were obtained in the anterior projection with uptake measurements of the gallbladder obtained. Comparison: Comparison is made to right upper quadrant ultrasound 12/13/2023 FINDINGS: Sequential images demonstrate normal uptake in the liver, common bile duct, gallbladder, and small bowel. No defects in uptake are identified. Subsequent imaging after the administration of sincalide demonstrates prompt elimination of the radiotracer from the gallbladder. IMPRESSION: Normal uptake of contrast by the gallbladder. No evidence of acute cholecystitis. Reference: Normal gallbladder ejection fraction is greater than 33%. ACT 112: Negative or not required by law. Electronically signed by: Júnior Farias M.D. 12/14/2023 12:51 PM Hospital Course (1) Acute acalculous cholecystitis: (2) Hypertension: (3) Obesity: Plan 43 year old male transfer from for acute cholecystitis Abdominal pain DD: Gastritis, peptic ulcer disease, Suspected Acute cholecystitis--less likely -- Outpatient records:lipase 34, troponin 6, Electrolytes normal, LFT normal RUQ US with wall thickening of BG with no evidence of cholelithiasis, normal common duct size. Findings may represent early acalculous cholecystitis CT A/P with diffuse mucosal enhancement of BG with mild diffuse thickening and pericholecystic minimal edema, signifying acute cholecystitis. --HIDA:Normal uptake of contrast by the gallbladder. No evidence of acute cholecystitis. -- Empirically received Unasyn --Appreciate surgery input: Discussed with surgery on 12/14/2023. Do not r ecommend antibiotics. Recommends to start on Protonix and follow-up with GI as outpatient Started on Protonix 40 mg daily Advance to low-fat diet as tolerated Plan to discharge home today Patient was advised to follow-up with PCP, gastroenterology as outpatient HTN Continue home medications Monitor Nicotine abuse prior smoker, now on gums. Obesity BMI 31 Was on Metformin before which did not help Has appt with weight management for Wed. DVT Px: SCDs Code Status Full code Disposition Home Total Time Total Time Spent Total Time Spent (In Minutes): 54 minutes Discharge Plan Discharge Items Patient Disposition: Home - Self-Care Reason For Visit: acute cholecystitis Discharge Diagnosis: Abdominal Pain Activity: Per Instructions section Exercise/Sports: Wait until after follow-up appointment Non-emergency contact: Primary Care Provider and Business Strategist Call non-emergency contact if: you have any medication questions, your symptoms worsen, your pain is concerning for you and you have a fever Follow-up/Referrals: Annmarie Mckenna MD [Primary Care Provider] - Diet: Low Fat Addtl Attending Provider Instructions: Follow-up with your primary care physician in 1 week Follow-up with your shore hand dredge or barge as recommended for possible endoscopy and further evaluation of abdominal pain -- Take Protonix 40 mg daily as recommended by your surgeon. Seek immediate medical attention if your symptoms reoccur or worsen Please take all medications as instructed on discharge list below. Please call if you have any questions or problems. You can reach a [facility] hospitalist on duty at [facility] 24 hours a day by calling [phone] Pending Studies at Discharge: No Stand-Alone Forms: My [facility], Smoking Cessation Medications and DC Order Prescriptions: New pantoprazole 40 mg Tablet,Delayed Release (Dr/Ec) 40 mg PO QAM Qty: 30 0RF Continued amlodipine 2.5 mg tablet 2.5 mg PO DAILY Discharge Orders: Discharge Order (Routine); Ordered 12/14/23 Ordered By: Guillermo Parikh Admission Data Admit Date/Time: 12/13/23 14:24 Attending Provider: Guillermo Parikh Admit Provider: Ej Dsouza Primary Care Provider: Annmarie Mckenna Other Providers: Jamia Smalls
[2023-12-15] MEDS ORDERED: PANTOprazole 40 MG TAB PO SCH (09:00)
== END 2023-12-14 14:43 | disposition home or self-care (01) | DRG 392 ==
LOC: INTOOBSV 14:24 → SUATTDRO 14:24 → 3W 14:24